=== PATIENT | female | born 1955 | race Asian ===

== ENCOUNTER → 2017-04-16 | Outpatient (CLI) | payer BC ==
--- NOTE | 2017-04-16 12:29 | Diagnostic Imaging Report ---
PROCEDURE: X-RAY CHEST, TWO VIEWS COMPARISON: None. INDICATIONS: COUGH FINDINGS: LUNGS: No mass or infiltrate. The pulmonary vascular markings are normal. PLEURA: No effusions or pneumothorax. HEART \T\ MEDIASTINUM: The cardiomediastinal silhouette is normal. BONES \T\ SOFT TISSUES: No focal osseous lesions. Soft tissues are unremarkable.. CONCLUSION: No acute thoracic abnormality. Dictated by: Deloris Jim M.D. on 04/16/2017 at 12:39 Electronically approved by: Deloris Jim M.D. on 04/16/2017 at 12:39
== END ==
LOC: RAD 10:26
PROVIDERS: ATTEND Internal Medicine Cardiovascular Disease
DX: Z01.00 Encounter for examination of eyes and vision without abnormal findings (principal)
CPT/HCPCS: 71046

== ENCOUNTER → 2018-06-04 | Outpatient (CLI) | payer BC ==
[~2018-06-04] MED LIST: GADOBENATE DIMEGLUMINE 1 ML IV ONE
[2018-06-04 08:23] LABS: BLOOD UREA NITROGEN 15 mg/dL (7-26); BUN/CREATININE RATIO 22 (6-25); CREATININE, SERUM 0.68 mg/dL (0.57-1.11); EST GLOMERULAR FILTRATION RATE > 60 ML/MIN (60-)
--- NOTE | 2018-06-04 10:14 | Diagnostic Imaging Report ---
Examination: MRI BRAIN WITHOUT AND WITH CONTRAST History: hearing loss Comparison studies:None Technique: Pre-and post axial T1, post contrast coronal T1 and, axial 3-D T2 through the internal auditory canals with sagittal oblique and coronal reconstructions. Postcontrast axial DWI and T2 flair and post contrast axial, sagittal and coronal T1 through the brain. Intravenous contrast: 13 mL Multihance. Findings: Supratentorial region: Masses: None. Acute or chronic vascular insults: There are patchy and punctate areas of T2/FLAIR hyperintensity in the periventricular and subcortical white matter, nonspecific.. Ventricles: Normal in size. No hydrocephalus. Basal ganglia and thalami: No signal abnormalities. Extra-axial collections: None. Posterior fossa: Cerebellar hemispheres: Normal in signal intensity and symmetric. Brainstem: No signal abnormalities. Cerebellopontine angle cisterns: Clear. No masses. Internal auditory canals: Symmetric. No masses. No abnormal enhancement. Craniocervical junction: No abnormalities. The foramen magnum is patent. IMPRESSION: 1. No abnormalities of the internal auditory canal or labyrinth. 2. Mild chronic microvascular ischemic change. Signed by: Dr. Dominique Alexander M.D. on 06/04/2018 10:11 AM
== END ==
LOC: MRI 07:29
PROVIDERS: ATTEND Internal Medicine Cardiovascular Disease
DX: G50.1 Atypical facial pain (principal)
CPT/HCPCS: 36415; 70553; 82565; 84520